=== PATIENT | male | born 1995 | race Caucasian/White ===

== ENCOUNTER 2025-03-30 18:07 | Emergency (ER) | payer OTHER ==
[~2025-03-30] VITALS: Ht 172.7 cm; Wt 59.0 kg
[2025-03-30] MEDS ORDERED: Ketorolac Tromethamine 15mg Vial IM ONE (21:20)
== END 2025-03-30 21:53 | disposition home or self-care (01) ==
LOC: ER 18:07
DX: S01.111A Laceration without foreign body of right eyelid and periocular area, initial encounter (principal); S60.512A Abrasion of left hand, initial encounter; S60.511A Abrasion of right hand, initial encounter; V19.9XXA Pedal cyclist (driver) (passenger) injured in unspecified traffic accident, initial encounter
CPT/HCPCS: 12052; 96372-59; 99283-25; J1885

== ENCOUNTER 2025-04-08 11:47 | Emergency (ER) | payer OTHER ==
[~2025-04-08] VITALS: Ht 172.7 cm; Wt 59.0 kg
== END 2025-04-08 15:14 | disposition home or self-care (01) ==
LOC: ER 11:47
DX: Z48.02 Encounter for removal of sutures (principal)
CPT/HCPCS: 99281